=== PATIENT | male | born 1985 | race African-American/Black ===

== ENCOUNTER 2017-03-12 12:23 | Emergency (ER) | payer MEDICAID ==
[~2017-03-12] VITALS: Ht 172.7 cm; Wt 59.0 kg
[2017-03-12 13:33] LABS: Basophils # (auto) 0 uL; Basophils % (auto) 1.1 % (0.0-2.0); Eosinophils # (auto) 0 uL; Eosinophils % (auto) 0.4 % (0.0-7.0); Hematocrit 42.8 % (41.0-53.0); Hemoglobin 13.9 g/dL (13.5-17.5); Lymphocytes # (auto) 1.7 uL; Lymphocytes % (auto) 40.9 % (10.0-50.0); Mean Corpuscular Hemoglobin 29.2 pg (28.0-32.0); Mean Corpuscular Hgb Conc. 32.6 g/dL (32.0-36.0); Mean Corpuscular Volume 89.7 fL (80.0-100.0); Monocytes # (auto) 0.5 uL; Monocytes % (auto) 12.5 % (0.0-12.0); Neutrophils # (auto) 1.9 uL; Neutrophils % (auto) 45.1 % (37.0-80.0); Nucleated Red Blood Cells % 0.3 %; Platelet Count (auto) 323 10^3/uL (140-450); Red Blood Cells 4.77 10^6/uL (4.5-5.90); Red Cell Distribution Width 16.2 % (11.8-14.3); White Blood Cell 4.3 10^3/uL (4.4-10.8)
[2017-03-12 13:42] LABS: BUN/Creatinine Ratio 13.8
[2017-03-12 13:45] LABS: Bilirubin, Total 0.6 mg/dL (0.2-1.0); Total Protein 7.6 g/dL (6.4-8.2)
[2017-03-12 14:35] VITALS: BP 110/64
== END 2017-03-12 15:29 | disposition home or self-care (01) ==
LOC: ER 12:23
DX: R10.31 Right lower quadrant pain (principal)
CPT/HCPCS: 36415; 80053; 85025

== ENCOUNTER 2020-09-16 09:15 | Emergency (ER) | payer MEDICAID ==
[~2020-09-16] VITALS: Ht 172.7 cm; Wt 40.8 kg
[2020-09-16] MEDS ORDERED: SODIUM CHLORIDE 0.9% 1,000 ML IV ONE ×2 (09:30)
[2020-09-16 09:46] VITALS: BP 111/67
[2020-09-16 10:18] LABS: Basophils # (auto) 0 10 ^3/uL (0-0.2); Basophils % (auto) 0.4 % (0.0-2.0); Eosinophils # (auto) 0 10 ^3/uL (0-0.8); Hematocrit 39.8 % (41.0-53.0); Hemoglobin 13.5 g/dL (13.5-17.5); Lymphocytes # (auto) 0.9 10 ^3/uL (0.4-5.4); Lymphocytes % (auto) 13.5 % (10.0-50.0); Mean Corpuscular Hemoglobin 27.8 pg (28.0-32.0); Mean Corpuscular Volume 81.8 fL (80.0-100.0); Monocytes # (auto) 0.6 10 ^3/uL (0-1.3); Monocytes % (auto) 8.4 % (0.0-12.0); Neutrophils # (auto) 5.1 10 ^3/uL (1.6-8.6); Neutrophils % (auto) 77.7 % (37.0-80.0); Red Blood Cells 4.87 10^6/uL (4.5-5.90); Red Cell Distribution Width 13.1 % (11.8-14.3); White Blood Cell 6.6 10^3/uL (4.4-10.8)
[2020-09-16 10:43] LABS: Albumin 3.7 g/dL (3.4-5.0); Anion Gap 3 (5-15); Blood Urea Nitrogen 22 mg/dL (7-18); Calcium 8.5 mg/dL (8.5-10.1); Carbon Dioxide 32 mmol/L (21-32); Chloride 108 mmol/L (98-107); Glucose 71 mg/dL (74-106); Potassium 3.6 mmol/L (3.5-5.1); Sodium 143 mmol/L (136-145)
[2020-09-16 10:57] LABS: Alanine Aminotransferase 58 U/L (16-61); Alkaline Phosphatase 105 U/L (45-117); Aspartate Aminotransferase 61 U/L (15-37); Bilirubin, Total 0.4 mg/dL (0.2-1.0); GFR African American 111 mL/min; GFR Non-African American 92 mL/min; Total Protein 7.1 g/dL (6.4-8.2)
== END 2020-09-16 11:41 | disposition left against medical advice (07) ==
LOC: ER 09:15 → EDBD 09:15 → ER 11:41
DX: R62.7 Adult failure to thrive (principal); R41.82 Altered mental status, unspecified; Z68.1 Body mass index [BMI] 19.9 or less, adult
CPT/HCPCS: 36415; 70450; 71045; 80053; 84484; 85025; 96360; 99285; J7030

== ENCOUNTER 2020-09-16 13:35 | Emergency (ER) | payer MEDICAID ==
[~2020-09-16] VITALS: Ht 172.7 cm; Wt 40.8 kg
[2020-09-16 14:17] VITALS: BP 103/76
== END 2020-09-16 14:20 | disposition left against medical advice (07) ==
LOC: EDBD 13:35 → ER 13:35
DX: R62.7 Adult failure to thrive (principal); Z68.1 Body mass index [BMI] 19.9 or less, adult